=== PATIENT | female | born 2005 | race Caucasian/White ===

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

== ENCOUNTER 2024-02-04 12:33 | Emergency (ER) | payer MEDICAID, OTHER ==
[~2024-02-04] VITALS: Ht 162.6 cm; Wt 68.2 kg
[~2024-02-04 12:33] MED LIST changes: +FAMO-92 PO; +NITR100C7 PO; +ONDA-188 PO
[2024-02-04 12:46] VITALS: BP 112/63; PULSE 104; RESP 18; TEMP 97.7; O2SAT 98
--- NOTE | 2024-02-04 12:56 | NUR ---
ASSUMED PATIENT CARE, NURSING ASSESSMENT COMPLETED.
--- NOTE | 2024-02-04 12:59 | NUR ---
DR JIMENEZ AT BEDSIDE, MSE COMPLETED.
[2024-02-04] MEDS ORDERED: PSEU120T22 PO (13:04)
--- NOTE | 2024-02-04 13:20 | NUR ---
Patient discharged with v/s stable. Written and verbal after care instructions given. Patient alert, oriented and verbalized understanding of instructions. Ambulatory with steady gait. All questions addressed prior to discharge. ID band removed. Patient advised to follow up with PMD. Rx of Sudafed 12 Hour given. Opportunity to ask questions provided and answered.
== END 2024-02-04 13:20 | disposition home or self-care (01) ==
LOC: MED 12:33
DX: O99.512 Diseases of the respiratory system complicating pregnancy, second trimester (principal); J06.9 Acute upper respiratory infection, unspecified; Z79.899 Other long term (current) drug therapy; Z3A.20 20 weeks gestation of pregnancy
CPT/HCPCS: 99282